=== PATIENT | female | born 1950 | race Caucasian/White ===

== ENCOUNTER 2017-12-20 15:42 | Observation (INO) | payer OTHER, MEDICARE ==
[~2017-12-20] VITALS: Ht 167.6 cm; Wt 45.5 kg
[~2017-12-20 15:42] MED LIST: ACTONEL150 MG PO; ADVAIR 500/501 DISK IH; ADVAIR HFA120 INHALA IH; AMBIEN10 MG PO; AMITIZA24 MICROGR PO; ASMANEX TW200 MICRO1 IH; ASMANEX TW30 INHALAT IH; ASPIR 8181 M1 PO; ASPIR-LOW81 MG PO; B COMPLETE1 EACH PO; BACLOFEN10 MG PO; CALTRATE 600 +1 EAC2 PO; CALTRATE 600600 MG PO; CARAFATE100 MG/ML PO; CARDIZEM30 MG PO; DIGOXIN125 MCG PO; DIGOXIN250 MCG PO; ESTRACE42.5 GM VG; EXCEDRIN EXTRA1 EACH PO; Estrace; FIORICET,ESG1 TABLET PO; FLONASE16 G1 BOTH NARES; GRALISE300 MG PO; HYDROCODON-ACE1 EAC8 PO; LANOXIN250 MCG PO; LIDODERM 5% P1 PATCH TD; LIDODERM 5% P1 PATCH TP; LOW DOSE ASPIRI81 M2 PO; MACROBID100 MG PO; MELOXICAM7.5 MG PO; MULTIVITAMIN1 EAC2 PO; MYCOSTATIN 100,60 ML PO; NASONEX17 GM BOTH NARES; NEXIUM40 MG PO; NITROSTAT0.4 MG SL; NUCYNTA ER100 MG PO; NUCYNTA50 MG PO; PRAVACHOL20 MG PO; PRAVASTATIN SOD20 MG PO; PREMARIN VAGI42.5 GM VG; PREMARIN0.625 MG PO; PREMARIN1.25 MG PO; PROAIR HFA8.5 GM IH; PROTONIX40 MG PO; PROVENTIL HFA6.7 GM IH; SINGULAIR10 MG PO; VALTREX1000 MG PO; VITAMIN D2000 INTUN PO; ZYRTEC10 M3 PO
[2017-12-20 16:09] LABS: HEMATOCRIT 37.4 % (36.0-46.0); HEMOGLOBIN 12.4 G/DL (11.9-15.5); MCHC 33.2 G/DL (30.0-36.0); MCV 87.4 FL (83-99); PLATELET COUNT 305 K/uL (156-360); RBC DIS.WIDTH-CV 13.6 % (11.8-14.6); RBC DIS.WIDTH-SD 43.5 % (39-53); RED BLOOD COUNT 4.28 M/uL (3.80-5.20); WHITE BLOOD COUNT 8.8 K/uL (4.1-10.2)
[2017-12-20 16:18] LABS: CHLORIDE 104 mEq/L (99-109); POTASSIUM 3.9 mEq/L (3.7-5.4); SODIUM 139 mEq/L (136-147)
[2017-12-20 16:20] LABS: GLUCOSE 102 mg/dL (70-99)
[2017-12-20 16:24] LABS: CREATININE 0.7 mg/dL (0.6-1.3); GFR ESTIMATE (CALCULATED) > 59 mL/min/; UREA NITROGEN (BUN) 14 mg/dL (9-23)
[2017-12-20 16:31] LABS: TROP-I INTERPRETATION NEGATIVE; TROPONIN-I < 0.01 ng/mL (0.0-0.30)
[2017-12-20 19:09] LABS: TROP-I INTERPRETATION NEGATIVE; TROPONIN-I 0.01 ng/mL (0.0-0.30)
[2017-12-20 20:01] LABS: DIGOXIN 0.7 ng/mL (0.8-2.0)
[2017-12-20] MEDS ORDERED: BACLOFEN10 MG PO (20:26)
[2017-12-20] MEDS ORDERED: ZOFRAN8 MG PO (20:29)
[2017-12-20] MEDS ORDERED: DOMP10T PO ×2 (20:30→20:32)
[2017-12-20] MEDS ORDERED: TRAMADOL HCL50 MG PO (20:32)
[2017-12-20] MEDS ORDERED: XARELTO20 MG PO (20:33)
[2017-12-20] MEDS ORDERED: BREO ELLIPTA 21 EACH IH (20:33)
[2017-12-20] MEDS ORDERED: BUTALB-ASPIRIN1 EACH PO (20:33)
[2017-12-20] MEDS ORDERED: MACROBID100 MG PO (20:33)
[2017-12-20] MEDS ORDERED: RELPAX40 MG PO (20:33)
[2017-12-20] MEDS ORDERED: FIORICET,ESG1 TABLET PO (20:34)
[2017-12-20] MEDS ORDERED: URIBEL CAPSULE1 EACH PO (20:34)
[2017-12-20 20:43] VITALS: BP 169/81
[2017-12-20 22:09] LABS: TROP-I INTERPRETATION NEGATIVE; TROPONIN-I < 0.01 ng/mL (0.0-0.30)
[2017-12-20 23:38] VITALS: BP 151/73
[2017-12-21 04:33] VITALS: BP 147/86
[2017-12-21 06:23] LABS: TROP-I INTERPRETATION NEGATIVE; TROPONIN-I < 0.01 ng/mL (0.0-0.30)
[2017-12-21 07:31] VITALS: BP 142/71
[2017-12-21 07:43] LABS: APPEARANCE CLEAR ((CLEAR)); BILIRUBIN NEGATIVE; BLOOD NEGATIVE; COLOR STRAW ((YELLOW)); GLUCOSE (STRIP) NEGATIVE; KETONES NEGATIVE; LEUKOCYTES NEGATIVE; NITRITE NEGATIVE; PROTEIN (STRIP) NEGATIVE; SPECIFIC GRAVITY 1.003 (1.000-1.030); UROBILINOGEN 0.2 MG/DL (0.2-1.0)
[2017-12-21 11:54] VITALS: BP 126/70
[2017-12-21 15:51] VITALS: BP 143/67
[2017-12-21] MEDS ORDERED: LIDOCAINE20 MG/1 M5 MM (18:18)
[2017-12-21 18:50] VITALS: BP 152/80
== END 2017-12-21 19:44 | disposition home or self-care (01) ==
LOC: EME 15:42 → EDOF 19:42 → 5WEST 19:42 → ENRESERV 19:46 → 5WEST 20:26
PROVIDERS: Physician Assistant
DX: R07.9 Chest pain, unspecified (principal); I48.0 Paroxysmal atrial fibrillation; Z79.01 Long term (current) use of anticoagulants; E78.5 Hyperlipidemia, unspecified; J45.909 Unspecified asthma, uncomplicated; K21.9 Gastro-esophageal reflux disease without esophagitis; G89.29 Other chronic pain; M54.9 Dorsalgia, unspecified; Z86.19 Personal history of other infectious and parasitic diseases; M79.602 Pain in left arm; M54.2 Cervicalgia; R06.02 Shortness of breath; R61 Generalized hyperhidrosis; K31.84 Gastroparesis; Z91.14 Patient's other noncompliance with medication regimen; G43.909 Migraine, unspecified, not intractable, without status migrainosus; I49.1 Atrial premature depolarization; N39.0 Urinary tract infection, site not specified; Z90.49 Acquired absence of other specified parts of digestive tract; Z90.710 Acquired absence of both cervix and uterus
CPT/HCPCS: 71046; 71275; 74174; 80048; 80162; 81003; 84484; 85027; 93005; 94640 76; 99202; 99281; 99285; G0378; J7030

== ENCOUNTER 2018-01-24 10:04 | Inpatient (IN) | payer OTHER, MEDICARE ==
[~2018-01-24] VITALS: Ht 167.6 cm; Wt 49.9 kg
[~2018-01-24 10:04] MED LIST changes: +BREO ELLIPTA 21 EACH IH; +BUTALB-ASPIRIN1 EACH PO; +DOMP10T PO; +LIDOCAINE20 MG/1 M5 MM; +RELPAX40 MG PO; +TRAMADOL HCL50 MG PO; +URIBEL CAPSULE1 EACH PO; +XARELTO20 MG PO; +ZOFRAN8 MG PO
[2018-01-24 10:47] LABS: HEMATOCRIT 37.2 % (36.0-46.0); HEMOGLOBIN 12.5 G/DL (11.9-15.5); MCH 28.8 PG (29.0-34.0); MCHC 33.6 G/DL (30.0-36.0); MCV 85.7 FL (83-99); PLATELET COUNT 206 K/uL (156-360); RBC DIS.WIDTH-CV 14.6 % (11.8-14.6); RBC DIS.WIDTH-SD 46.2 % (39-53); RED BLOOD COUNT 4.34 M/uL (3.80-5.20); WHITE BLOOD COUNT 9.6 K/uL (4.1-10.2)
[2018-01-24 10:57] LABS: CHLORIDE 94 mEq/L (99-109)
[2018-01-24 10:59] LABS: GLUCOSE 138 mg/dL (70-99); SODIUM 131 mEq/L (136-147)
[2018-01-24 11:03] LABS: GFR ESTIMATE (CALCULATED) 59 mL/min/
[2018-01-24 11:04] LABS: UREA NITROGEN (BUN) 18 mg/dL (9-23)
[2018-01-24 12:21] LABS: TROP-I INTERPRETATION NEGATIVE; TROPONIN-I 0.02 ng/mL (0.0-0.30)
[2018-01-24] MEDS ORDERED: CEFDINIR300 MG PO (17:45)
[2018-01-24 19:49] LABS: TROP-I INTERPRETATION NEGATIVE; TROPONIN-I < 0.01 ng/mL (0.0-0.30)
[2018-01-24 19:52] LABS: APPEARANCE CLEAR ((CLEAR)); BILIRUBIN NEGATIVE; BLOOD NEGATIVE; COLOR YELLOW ((YELLOW)); GLUCOSE (STRIP) NEGATIVE; KETONES 5; LEUKOCYTES NEGATIVE; NITRITE NEGATIVE; PROTEIN (STRIP) NEGATIVE; SPECIFIC GRAVITY 1.044 (1.000-1.030); UCUL ADDED? NO; UROBILINOGEN 0.2 MG/DL (0.2-1.0)
[2018-01-24 20:12] LABS: HDL CHOLESTEROL 36 MG/DL (Desirable>=50); LDL CHOLESTEROL 59 mg/dL (Desirable<100); NON-HDL CHOLESTEROL 78 mg/dL (Desirable<160); TOTAL CHOLESTEROL 114 mg/dL (Desirable<200); TRIGLYCERIDES 95 MG/DL (Normal: <150)
[2018-01-24 20:44] LABS: THYROTROPIN (TSH) 2.2 MIU/L (0.4-5.5)
[2018-01-24 21:00] VITALS: BP 107/59
[2018-01-25] VITALS (11 sets, daily range): BP systolic 95–159; BP diastolic 49–89
[2018-01-25 01:10] LABS: TROP-I INTERPRETATION NEGATIVE; TROPONIN-I < 0.01 ng/mL (0.0-0.30)
[2018-01-25 05:53] LABS: BASOPHIL (%) 0.2 % (0-1); EOSINOPHIL (%) 0.3 % (0-5); HEMATOCRIT 28.8 % (36.0-46.0); IMMATURE GRANULOCYTE (%) 1.1 % (0.0-0.7); LYMPHOCYTE (%) 8.4 % (15-42); LYMPHOCYTE COUNT 0.5 K/uL (1.0-2.8); MCH 28.5 PG (29.0-34.0); MCHC 33.3 G/DL (30.0-36.0); MCV 85.5 FL (83-99); MONOCYTE (%) 8.7 % (3-12); MONOCYTE COUNT 0.6 K/uL (0-0.8); NEUTROPHIL (%) 81.3 % (45-76); NEUTROPHIL COUNT 5.2 K/uL (1.8-6.4); PLATELET COUNT 154 K/uL (156-360); RBC DIS.WIDTH-CV 14.9 % (11.8-14.6); RBC DIS.WIDTH-SD 46.7 % (39-53); WHITE BLOOD COUNT 6.4 K/uL (4.1-10.2)
[2018-01-25 06:22] LABS: CHLORIDE 105 MEQ/L (99-109); CREATININE 0.7 MG/DL (0.6-1.3); GFR ESTIMATE (CALCULATED) > 59 mL/min/; GLUCOSE 105 mg/dL (70-99); SODIUM 135 MEQ/L (136-147); UREA NITROGEN (BUN) 11 mg/dL (9-23)
[2018-01-25 06:40] LABS: RED BLOOD COUNT 3.37 M/uL (3.80-5.20)
[2018-01-25 06:41] LABS: HEMOGLOBIN 9.6 G/DL (11.9-15.5)
[2018-01-25 10:20] LABS: HEMOGLOBIN A1c (GLYCOHEMOGLOB) 5.1 % (Below 5.7)
[2018-01-25 13:40] LABS: CHLORIDE 109 MEQ/L (99-109); CREATININE 0.5 MG/DL (0.6-1.3); GFR ESTIMATE (CALCULATED) > 59 mL/min/; GLUCOSE 118 mg/dL (70-99); POTASSIUM 3.4 MEQ/L (3.7-5.4); SODIUM 138 MEQ/L (136-147); UREA NITROGEN (BUN) 6 mg/dL (9-23)
[2018-01-26 02:41] VITALS: BP 139/75
[2018-01-26 05:25] LABS: HEMATOCRIT 31.5 % (36.0-46.0); HEMOGLOBIN 10.1 G/DL (11.9-15.5); MCH 27.6 PG (29.0-34.0); MCHC 32.1 G/DL (30.0-36.0); MCV 86.1 FL (83-99); PLATELET COUNT 194 K/uL (156-360); RBC DIS.WIDTH-CV 15.2 % (11.8-14.6); RBC DIS.WIDTH-SD 48.5 % (39-53); RED BLOOD COUNT 3.66 M/uL (3.80-5.20)
[2018-01-26 05:57] LABS: ALBUMIN 2.5 G/DL (3.2-4.8); ALKALINE PHOSPHATASE 64 IU/L (3-129); CHLORIDE 107 MEQ/L (99-109); CREATININE 0.6 MG/DL (0.6-1.3); GFR ESTIMATE (CALCULATED) > 59 mL/min/; GLUCOSE 123 mg/dL (70-99); POTASSIUM 3.4 MEQ/L (3.7-5.4); SODIUM 141 MEQ/L (136-147); UREA NITROGEN (BUN) 4 mg/dL (9-23)
[2018-01-26 05:58] LABS: ALT (GPT) 16 IU/L (3-49); AST (GOT) 32 IU/L (2-34); TOTAL BILIRUBIN 0.2 MG/DL (0.0-1.0); TOTAL PROTEIN 4.5 G/DL (6.4-8.3)
[2018-01-26 07:30] VITALS: BP 144/68
[2018-01-26 08:15] LABS: INTACT PARATHYROID HORMONE 59 pg/mL (10-69)
[2018-01-26 10:33] LABS: MAGNESIUM 1.6 mg/dl (1.3-2.7)
[2018-01-26 11:30] VITALS: BP 123/68
[2018-01-26 14:52] VITALS: BP 128/66
[2018-01-26 20:00] VITALS: BP 158/69
[2018-01-26 23:47] VITALS: BP 154/76
[2018-01-27 04:00] VITALS: BP 154/76
[2018-01-27 07:06] VITALS: BP 128/70
[2018-01-27] MEDS ORDERED: ROCEPHIN1000 MG IM (10:08)
[2018-01-27 11:34] VITALS: BP 117/58
== END 2018-01-27 12:20 | disposition home or self-care (01) | DRG 193 ==
LOC: EME 10:04 → 4EAST 18:33 → 5SOUTH 18:33 → 4EAST 18:33 → EDOF 18:33 → ENRESERV 18:40 → 5SOUTH 21:01 → ENRESERV 01-25 03:54 → 4EAST 01-25 06:20 → ENRESERV 01-26 09:30 → CANRESERV 01-26 11:51 → ENRESERV 01-26 11:51 → 4EAST 01-27 12:20
PROVIDERS: Hospitalist; Internal Medicine
DX: J13 Pneumonia due to Streptococcus pneumoniae (principal); G93.41 Metabolic encephalopathy; E83.51 Hypocalcemia; E87.1 Hypo-osmolality and hyponatremia; E87.6 Hypokalemia; E86.0 Dehydration; I10 Essential (primary) hypertension; I25.10 Atherosclerotic heart disease of native coronary artery without angina pectoris; I48.91 Unspecified atrial fibrillation; M81.0 Age-related osteoporosis without current pathological fracture; K21.9 Gastro-esophageal reflux disease without esophagitis; J44.9 Chronic obstructive pulmonary disease, unspecified; M35.3 Polymyalgia rheumatica; J45.20 Mild intermittent asthma, uncomplicated; G43.909 Migraine, unspecified, not intractable, without status migrainosus; R00.2 Palpitations; I95.9 Hypotension, unspecified; R00.0 Tachycardia, unspecified; D64.9 Anemia, unspecified; R33.9 Retention of urine, unspecified; R47.1 Dysarthria and anarthria; R60.0 Localized edema; Z68.1 Body mass index [BMI] 19.9 or less, adult; E78.5 Hyperlipidemia, unspecified; E78.00 Pure hypercholesterolemia, unspecified; H91.90 Unspecified hearing loss, unspecified ear; K59.00 Constipation, unspecified; R13.10 Dysphagia, unspecified; Z80.0 Family history of malignant neoplasm of digestive organs; Z83.3 Family history of diabetes mellitus
CPT/HCPCS: 36415; 70450; 70496; 70498; 70551; 71046; 71275; 72131; 80048; 80048 91; 80053; 80061; 81003; 82306; 82330; 82436; 82607; 83036; 83605; 83735; 83970; 84133; 84300; 84443; 84484; 85007; 85025; 85027; 87040; 87070; 87205; 87449; 87502; 87641; 93005; 94640; 94640 76; 99202; 99281; 99285; J0295; J0456; J0696; J0780; J1644; J2060; J2405; J3480; J7030; J7040; J7050

== ENCOUNTER 2018-01-31 07:08 | Emergency (ER) | payer OTHER, MEDICARE ==
[~2018-01-31] VITALS: Ht 167.6 cm; Wt 45.5 kg
[~2018-01-31 07:08] MED LIST changes: +CEFDINIR300 MG PO; +ROCEPHIN1000 MG IM
[2018-01-31] MEDS ORDERED: PREDNISONE10 MG PO (09:21)
[2018-01-31] MEDS ORDERED: FLEXERIL10 MG PO (09:21)
[2018-01-31 09:30] VITALS: BP 121/80
== END 2018-01-31 09:30 | disposition home or self-care (01) ==
LOC: EME 07:08
DX: M54.42 Lumbago with sciatica, left side (principal); R20.2 Paresthesia of skin; J44.9 Chronic obstructive pulmonary disease, unspecified; I10 Essential (primary) hypertension; E78.5 Hyperlipidemia, unspecified; Z87.01 Personal history of pneumonia (recurrent); M81.0 Age-related osteoporosis without current pathological fracture; I47.1 Supraventricular tachycardia; Z79.01 Long term (current) use of anticoagulants
CPT/HCPCS: 73502; 99281; 99283